=== PATIENT | male | born 2000 | race Caucasian/White ===

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

== ENCOUNTER 2021-01-02 17:14 | Emergency (ER) | payer OTHER, SELFPAY | END 2021-01-02 17:15 | disposition left against medical advice (07) | PROVIDERS: Emergency Provider Family Medicine; PCP Family Medicine | DX: Z04.9 Encounter for examination and observation for unspecified reason (principal); Z53.8 Procedure and treatment not carried out for other reasons | CPT/HCPCS: 99199 ==

== ENCOUNTER 2021-02-17 16:39 | Outpatient (CLI) | payer MEDICAID, SELFPAY ==
[2021-02-17 17:40] LABS: SARS-CoV-2 RNA PCR Negative (Negative)
== END 2021-02-17 16:40 | disposition home or self-care (01) ==
PROVIDERS: PCP Family Medicine; Visit Provider Physician Assistant
DX: Z20.822 Contact with and (suspected) exposure to COVID-19 (principal)
CPT/HCPCS: C9803; U0003; U0005

== ENCOUNTER 2021-02-23 13:23 | Outpatient (CLI) | payer BC, MEDICAID, SELFPAY ==
--- NOTE | ~2021-02-23 | US_ITS ---
EXAMINATION: US scrotum doppler EXAM DATE: 02/23/2021 14:03 INDICATION: Testicular lump . TECHNIQUE: Multiple grayscale and Doppler images of the testicles and scrotum were obtained bilateral ly. There is no prior study for comparison. FINDINGS: Right testicle measures 4.8 x 2.0 x 3.3 cm and is morphologically normal. Low resistance Doppler lor w confirmed. The epididymis is unremarkable. There is no hydrocele or varicocele. Left testicle measures 4.0 x 1.9 x 2.8 cm and is morphologically normal. Low resistance Doppler flow confirmed. The epididymis is unremarkable. Small varicocele identified posterior to left testicle an notated area of palpable abnormality. IMPRESSION: 1. Small left varicocele may correspond to patient's palpable abnormality. 2. Sonographically normal testicles. Reviewed, dictated and finalized at location A. COORDINATION MANAGER
== END 2021-02-23 13:24 | disposition home or self-care (01) ==
LOC: CHSIMG 13:29
PROVIDERS: PCP Family Medicine; Visit Provider Physician Assistant
DX: N50.89 Other specified disorders of the male genital organs (principal)
CPT/HCPCS: 76870; 93976

== ENCOUNTER 2021-04-21 17:03 | Outpatient (CLI) | payer BC, MEDICAID, SELFPAY ==
[2021-04-21 17:53] LABS: SARS-CoV-2 Ag Negative (Negative)
[2021-04-21 19:15] LABS: SARS-CoV-2 RNA PCR Negative (Negative)
== END 2021-04-21 17:04 | disposition home or self-care (01) ==
LOC: CHSLAB 17:05
PROVIDERS: PCP Family Medicine; Visit Provider Physician Assistant
DX: Z20.822 Contact with and (suspected) exposure to COVID-19 (principal)
CPT/HCPCS: 87426; C9803; U0003; U0005